=== PATIENT | male | born 1990 | race Caucasian/White ===

== ENCOUNTER 2023-08-21 18:06 | Emergency (ER) | payer OTHER ==
[2023-08-21 18:29] VITALS: BP 135/85; PULSE 69; RESP 18; TEMP 100.2; BMI 25.8
[2023-08-21] MEDS: morphine CARPU-JECT 2 MG/1 ML DISP.SYRIN IVPUSH ONE (20:37)
[2023-08-21 20:47] LABS: BASO % 0.3 % (0-2.0); EOS % 0.5 % (0-4.5); HEMATOCRIT 42.8 % (35.4-49); HEMOGLOBIN 14.9 GM/dL (11.7-16.9); LYMPH % 10.1 % (8-40); MCH 30.5 pg (25.7-33.7); MCHC 34.7 g/dl (32.0-35.9); MEAN CELL VOLUME 87.8 fl (80-96); MONO % 5.6 % (3.8-10.2); NEUT % 83.5 % (42.8-82.8); PLATELET COUNT 166 10^3/uL (134-434); RBC 4.87 M/mm3 (4.00-5.60); RDW 13.7 % (11.9-15.9); WHITE BLOOD COUNT 8.8 K/mm3 (4.0-10.0)
[2023-08-21 20:54] LABS: PROTHROMBIN TIME (PATIENT) 11.5 SEC (9.7-13.0)
[2023-08-21 21:13] LABS: POTASSIUM 4.3 mmol/L (3.5-5.1)
[2023-08-21 21:15] LABS: BLOOD UREA NITROGEN 17.1 mg/dL (7-18); CALCIUM 8.6 mg/dL (8.5-10.1)
[2023-08-21 21:18] LABS: CREATININE 1.1 mg/dL (0.55-1.3)
[2023-08-21 21:20] LABS: BILIRUBIN,TOTAL 0.3 mg/dL (0.2-1); TOT PROT 7.1 g/dl (6.4-8.2)
== END 2023-08-21 22:04 | disposition home or self-care (01) ==
LOC: JER 18:06
DX: S82.301A Unspecified fracture of lower end of right tibia, initial encounter for closed fracture (principal); S82.831A Other fracture of upper and lower end of right fibula, initial encounter for closed fracture; W18.39XA Other fall on same level, initial encounter; Y93.66 Activity, soccer; Y93.02 Activity, running
CPT/HCPCS: 36415; 73590-TC-RT-FY; 73610-TC-RT-FY; 73630-TC-RT-FY; 80053; 85025; 85610; 86850; 86900; 86901; 99284-25